=== PATIENT | female | born 1990 | race Two or more races ===

== ENCOUNTER 2021-11-02 14:52 | Emergency (ER) | payer OTHER ==
[~2021-11-02] VITALS: Ht 160 cm; Wt 94.3 kg
[2021-11-02] MEDS ORDERED: FOLIC ACID0.8 M1 PO (15:07)
[2021-11-02] MEDS ORDERED: PEPCID AC20 MG PO (15:07)
[2021-11-02] MEDS ORDERED: ZOFRAN8 MG PO (15:08)
[2021-11-02] MEDS ORDERED: PRENATAL TABLE1 EAC3 PO (15:08)
[2021-11-02] MEDS ORDERED: FLUCONAZOLE150 MG PO (17:59)
== END 2021-11-02 18:04 | disposition home or self-care (01) ==
LOC: ER 14:52
DX: O98.811 Other maternal infectious and parasitic diseases complicating pregnancy, first trimester (principal); B37.9 Candidiasis, unspecified; Z3A.10 10 weeks gestation of pregnancy; Z91.013 Allergy to seafood; Z91.018 Allergy to other foods

== ENCOUNTER 2021-11-07 18:18 | Emergency (ER) | payer OTHER ==
[~2021-11-07] VITALS: Ht 160 cm; Wt 89.8 kg
[~2021-11-07 18:18] MED LIST: FLUCONAZOLE150 MG PO; FOLIC ACID0.8 M1 PO; PEPCID AC20 MG PO; PRENATAL TABLE1 EAC3 PO; ZOFRAN8 MG PO
[2021-11-07] MEDS ORDERED: ANTIFUNGAL113 GM (18:40)
== END 2021-11-07 21:35 | disposition home or self-care (01) ==
LOC: ER 18:18
DX: O23.591 Infection of other part of genital tract in pregnancy, first trimester (principal); Z3A.11 11 weeks gestation of pregnancy; Z88.6 Allergy status to analgesic agent; Z91.013 Allergy to seafood; Z91.018 Allergy to other foods

== ENCOUNTER 2021-11-30 13:18 | Outpatient (CLI) | payer OTHER ==
[~2021-11-30 13:18] MED LIST changes: +ANTIFUNGAL113 GM
== END 2021-11-30 14:25 | disposition home or self-care (01) ==
LOC: PRENATAL 13:18
PROVIDERS: ATTEND Obstetrics & Gynecology Maternal & Fetal Medicine
DX: Z36.0 Encounter for antenatal screening for chromosomal anomalies (principal); Z3A.14 14 weeks gestation of pregnancy

== ENCOUNTER 2022-01-18 11:13 | Outpatient (CLI) | payer OTHER | END 2022-01-18 12:45 | disposition home or self-care (01) | LOC: PRENATAL 11:13 | PROVIDERS: ATTEND Obstetrics & Gynecology Maternal & Fetal Medicine | DX: O35.0XX0 Maternal care for (suspected) central nervous system malformation in fetus, not applicable or unspecified (principal); O35.3XX0 Maternal care for (suspected) damage to fetus from viral disease in mother, not applicable or unspecified; Z88.6 Allergy status to analgesic agent; Z91.02 Food additives allergy status; Z3A.24 24 weeks gestation of pregnancy ==

== ENCOUNTER 2022-02-14 15:59 | Outpatient (CLI) | payer OTHER | END 2022-02-14 20:32 | disposition home or self-care (01) | LOC: OBS/DEL 15:59 | PROVIDERS: ATTEND Obstetrics & Gynecology | DX: O26.892 Other specified pregnancy related conditions, second trimester (principal); Z3A.25 25 weeks gestation of pregnancy; R42 Dizziness and giddiness ==

== ENCOUNTER 2022-05-11 14:47 | Inpatient (IN) | payer OTHER ==
[~2022-05-11] VITALS: Ht 160 cm; Wt 3.2 kg
== END 2022-05-21 14:54 | disposition home or self-care (01) | DRG 788 ==
LOC: OB/GYN 05-19 07:00 → O/R 05-19 12:55 → OB/GYN 05-19 12:55
PROVIDERS: ADMIT Obstetrics & Gynecology; ATTEND Obstetrics & Gynecology
PROC: 4A1HXCZ Monitoring of Products of Conception, Cardiac Rate, External Approach (ICD-10-PCS; 2022-05-19)
PROC: 10D00Z1 Extraction of Products of Conception, Low, Open Approach (ICD-10-PCS; principal; 2022-05-19 07:00)
DX: O34.211 Maternal care for low transverse scar from previous cesarean delivery (principal); O99.824 Streptococcus B carrier state complicating childbirth; Z3A.39 39 weeks gestation of pregnancy; Z37.0 Single live birth; Z20.822 Contact with and (suspected) exposure to COVID-19